=== PATIENT | female | born 1965 | race Caucasian/White ===

== ENCOUNTER 2022-05-05 13:20 | Emergency (ER) | payer OTHER ==
[~2022-05-05] VITALS: Ht 170.2 cm; Wt 54.4 kg
--- NOTE | 2022-05-05 14:10 | NUR ---
Pt arrived for a f/u check-up of her heart d/t past occurence of CP. Denies present CP, no dizziness, n/v, headache. Seen by Dr. Medellin for MSE.
[2022-05-05] MEDS ORDERED: MAG HYDROX/AL HYDROX/SIMETH 30 ML LIQUID UDC ONE (14:26)
[2022-05-05] MEDS ORDERED: FAMOTIDINE 20 MG TABLET ONE (14:26)
[2022-05-05] MEDS ORDERED: MAG HYDROX/AL HYDROX/SIMETH 30 ML LIQUID UDC PO ONE (14:30)
[2022-05-05] MEDS ORDERED: FAMOTIDINE 20 MG TABLET PO ONE (14:30)
[2022-05-05 14:37] LABS: HEMATOCRIT 42.7 % (31.2-41.9); MEAN CORPUSCULAR HEMOGLOBIN 29.9 uug (24.7-32.8); MEAN CORPUSCULAR VOLUME 90.9 fL (75.5-95.3); PLATELET COUNT (AUTO) 247 K/uL (179-408)
--- NOTE | 2022-05-05 16:30 | NUR ---
F/u with lab result of Troponin, in progress per Venkatesh GARCIA.
[2022-05-05 16:31] LABS: BILIRUBIN,TOTAL 0.5 mg/dL (0.2-1.0); CREATININE 0.9 mg/dL (0.6-1.3); POTASSIUM 3.9 mmol/L (3.5-5.1); TOTAL PROTEIN, SERUM 7.9 g/dL (6.4-8.2)
--- NOTE | 2022-05-05 16:55 | NUR ---
Pt stated "I have to leave.", aware. Signed AMA.
[2022-05-05] MEDS ORDERED: FAMO-132 PO (17:04)
--- NOTE | 2022-05-05 17:08 | NUR ---
Pt decided to stay and wait for MDs prescription.
--- NOTE | 2022-05-05 17:10 | NUR ---
Patient discharged to home in stable condition. Written and verbal after care instructions given. Patient verbalizes understanding of instructions. Stressed follow up or return to ER for worsening s/s.
[2022-05-05 17:11] VITALS: BP 129/89
== END 2022-05-05 17:09 | disposition home or self-care (01) ==
LOC: ER 13:20
DX: R10.13 Epigastric pain (principal)
CPT/HCPCS: 36415; 71045; 84484; 85025; 93005; A4663

== ENCOUNTER 2024-03-11 15:50 | Emergency (ER) | payer OTHER ==
[~2024-03-11] VITALS: Ht 165.1 cm; Wt 60.8 kg
[~2024-03-11 15:50] MED LIST: FAMO-132 PO
[2024-03-11 16:50] VITALS: O2SAT 100
== END 2024-03-11 21:45 | disposition left against medical advice (07) ==
LOC: ER 15:50
DX: R10.9 Unspecified abdominal pain (principal); Z53.21 Procedure and treatment not carried out due to patient leaving prior to being seen by health care provider
CPT/HCPCS: A4606; A4663